=== PATIENT | female | born 1990 | race Two or more races ===

== ENCOUNTER 2024-03-19 18:03 | Emergency (ER) | payer MEDICAID, SELFPAY ==
[2024-03-19 18:10] VITALS: PULSE 90; RESP 18; O2SAT 98
[2024-03-19 18:24] VITALS: BP 149/100; PULSE 69; RESP 16; TEMP 36.4; O2SAT 100
[2024-03-19 18:47] VITALS: BMI 27.9
[2024-03-19 18:51] VITALS: BP 127/79; PULSE 75; RESP 16; TEMP 36.6; O2SAT 100
[2024-03-19 19:29] LABS: Basophils % (Auto) 0 % (0-2.5); Eosinophils # (Auto) 0.1 Thou/mm3 (0.0-0.5); Eosinophils % (Auto) 1 % (0-10); Hematocrit 36.8 % (36.0-46.0); Hemoglobin 12.8 g/dL (12.0-16.0); Immature Granulocytes % (Auto) 0 % (0-0); Immature Granulocytes Auto 0.01 Thou/mm3 (0.00-0.00); Lymphocytes # (Auto) 2.4 Thou/mm3 (1.0-4.8); Lymphocytes % (Auto) 31 % (10-50); Mean Corpuscular HGB Conc 34.8 g/dl (31.0-37.0); Mean Corpuscular Hemoglobin 32.3 pg (25.0-35.0); Mean Corpuscular Volume 93 fL (80-100); Monocytes # (Auto) 0.5 Thou/mm3 (0.0-0.8); Monocytes % (Auto) 7 % (0-12); Neutrophils # (Auto) 4.6 Thou/mm3 (1.8-7.7); Neutrophils % (Auto) 60 % (37-80); Nucleated Red Blood Cell % 0 /100 WBC (0); Platelet Count 252 Thou/mm3 (140-440); RDW Standard Deviation 45.2 fL (36.4-46.3); Red Blood Count 3.96 Miln/mm3 (4.00-5.20); White Blood Count 7.7 Thou/mm3 (3.6-11.0)
[2024-03-19 19:47] LABS: Alanine Aminotransferase 18 U/L (10-49); Albumin, Serum 4.6 gm/dL (3.5-5.0); Albumin/Globulin Ratio 1.5 (1.2-2.2); Alkaline Phosphatase 83 U/L (46-116); Anion Gap 7 (7-16); Aspartate Amino Transferase 19 U/L (0-34); BUN/Creatinine Ratio 16 Ratio (12-20); Bilirubin,Total 0.5 mg/dL (0.3-1.2); Blood Urea Nitrogen 13 mg/dL (9-23); Calcium 9.9 mg/dL (8.3-10.6); Calcium (Corrected) 9.9 mg/dL (8.5-10.1); Carbon Dioxide 23.8 mMol/L (20.0-31.0); Chloride 110 mMol/L (98-107); Creatinine (Component) 0.8 mg/dL (0.6-1.3); Estimated Creatinine Clearance 96.7 mL/min (>60); Globulin 3.1 gm/dL (2.3-3.5); Glucose 98 mg/dL (74-106); Osmolality,Calculated 281 (275-295); Potassium 3.8 mMol/L (3.4-5.1); Sodium 141 mMol/L (136-145); Total Protein 7.7 gm/dL (5.7-8.2); eGFR > 60 See Note
--- NOTE | 2024-03-19 19:53 | PD.EDSYNC ---
ED Syncope RME/HPI General Chief Complaint: Syncope / Near Syncope Stated Complaint: SYNCOPE Time Seen by Provider: 03/19/24 19:54 Arrival date/time: 03/19/24 18:03 Limitations: no limitations RME / HPI RME / HPI narrative: Dr. Márquez's Main ED Evaluation: 33-year-old female coming in from home for lightheadedness and she was walking and then she had syncopal episode. The patient states she knew she was going to pass out and then hit her right side on the fence. She was complaining of minimal left ankle abrasion and left arm pain. Patient states that she is on metoprolol but she has not had a change in her meds. Positive palpitations. Patient states she did not have headache, nausea vomiting or diarrhea. No recent travel and no shortness of breath. No chest pain. MD complaint: other Related Data Home Medications ?Medication ?Instructions ?Recorded ?Confirmed metoprolol tartrate 50 mg tablet 25 mg PO Q12H PRN Tachyarrhythmias 07/19/20 02/24/22 folic acid 1 mg tablet 1 mg PO QDAY 02/24/22 02/24/22 vit no.95-ferrous 1 tab PO QDAY 02/24/22 02/24/22 fumarate 28 mg-folic acid 800 mcg tablet () Previous Rx's ?Medication ?Instructions ?Recorded ibuprofen 600 mg tablet 600 mg PO TID PRN pain #30 tabs 04/09/22 ibuprofen 600 mg tablet 600 mg PO Q8H PRN pain #14 tabs 10/12/22 tamsulosin 0.4 mg capsule 0.4 mg PO QDAY #7 caps 10/12/22 Allergies Allergy/AdvReac Type Severity Reaction Status Date / Time No Known Allergies Allergy Verified 01/24/24 03:13 Review of Systems Review of Systems Systems Reviewed: All systems reviewed, normal except as documented Past Medical History Past Medical History NEUROLOGIC: Negative Neurological Disorders CARDIAC: Positive Cardiac Arrhythmia; Negative Cardiac Disorders or Congestive Heart Failure RESPIRATORY: Negative Chronic Obstructive Pulmonary Disease (COPD) or Asthma GASTROINTESTINAL: Positive Gastrointestinal Disorders, Pancreatitis and Ulcer GENITOURINARY: Negative Genitourinary Disorders or Renal Disease REPRODUCTIVE: Negative Pelvic Inflammatory Disease MUSCULOSKELETAL: Negative Musculoskeletal Disorders ENDOCRINE: Negative Diabetes Mellitus Type 1 or Diabetes Mellitus Type 2 HEMATOLOGIC: Negative Blood Disorders or Sickle Cell Disease OTHER HISTORY: Negative Autoimmune Disease, Anesthesia Reactions, Organ Transplant, MRSA, VRSA, Vancomycin-Resistant Enterococci or Clostridium Difficile Family History FAMILY HISTORY: Positive Family Cardiac Disorders; Negative Family Psychiatric Problems, Family Respiratory Disorders, Family Gastrointestinal Problems, Family Cancer, Family Surgery or Family Anesthesia Reaction Surgical History SURGICAL: Positive Abdominal Surgery and Lumpectomy; Negative Cardiac Surgery, Endocrine Surgery, Ear Surgery, Nephrectomy, Joint Replacement or Organ Transplant Social History SMOKING STATUS: Never smoker SECOND HAND EXPOSURE: No ED Exam General Limitations: Present no limitations General appearance: Present alert and in no apparent distress Head Head exam: Present atraumatic Eye Eye exam: Present normal appearance, PERRL and EOMI ENT ENT exam: Present normal exam, normal oropharynx and mucous membranes moist Neck Neck exam: Present normal inspection, full ROM and trachea midline Chest Chest inspection: Present normal inspection and symmetric chest wall rise Respiratory Respiratory exam: Present normal lung sounds bilaterally Cardiovascular Cardiovascular exam: Present regular rate, normal rhythm and normal heart sounds Abdominal Exam Abdominal exam: Present soft and normal bowel sounds Extremities Exam Extremities exam: Present normal inspection and full ROM Back Exam Back exam: Present normal inspection and full ROM Neurological Exam Neurological exam: Present alert, oriented X3 and CN II-XII intact Psychiatric Psychiatric exam: Present normal affect and normal mood Skin Skin exam: Present warm, dry, intact and normal color Course Quality Measures none Orders Category Date Time Status EKG (ED ONLY) *Do not use* NOW Care 03/19/24 18:50 Active EKG (ED Only) Stat Exams 03/19/24 18:49 Stop Req CBC Stat Lab 03/19/24 19:12 Completed CMP [Comprehensive Metabolic Panel] Stat Lab 03/19/24 19:12 Completed Drug Screen,Urine Stat Lab 03/19/24 18:51 Ordered HCG Qualitative,Urine Stat Lab 03/19/24 18:50 Ordered Urinalysis Stat Lab 03/19/24 18:50 Ordered Vital Signs Vital signs: Vital Signs Temperature 97.6 F 03/19/24 18:24 Pulse Rate 69 03/19/24 18:24 Respiratory Rate 16 03/19/24 18:24 Blood Pressure 149/100 H 03/19/24 18:24 Pulse Oximetry (%) 100 03/19/24 18:24 Oxygen Delivery Method Room Air 03/19/24 18:24 Pulse ox is 100% on room air, which is normal according to my interpretation. Syncope MDM Narrative MDM Narrative:: Differential diagnosis includes palpitations, CHF, arrhythmia, abdominal pain, electrolyte abnormality, GI bleed. Likely not acute pulmonary embolism as the etiology and the patient at this time does not wait wait for an EKG. We discussed risks and benefits to include , but the patient would like to leave Labs are reviewed the patient has white count of 7.7 which is normal. Hemoglobin is 12/36 which is normal no thrombocytopenia. Otherwise electrolytes are normal. Fingerstick is 99. Alternatives were discussed and the patient is leaving AMA. Patient data External records reviewed:: [facility] previous records (Per chart review, patient was seen here on 01/24/24 for abdominal pain.) Clinical information provided by:: patient Social determinants that could affect healthcare access:: none Patient has the following chronic illnesses:: ulcer How is presenting disease/condition affected by chronic disease/condition?: uneffected by Evaluation data The following diagnostics were reviewed and interpreted by me:: lab results Lab and/or radiology exams considered but not ordered:: none Interpretation Summary: See above under MDM narrative. Medications / Prescriptions Medications or Prescriptions considered but not ordered:: none Medication administrations:: none Consultations Consultation(s) initiated? (list below): No Diagnosis Syncope Differential Diagnosis: other (palpitations, CHF, arrhythmia, abdominal pain, electrolyte abnormality, GI bleed) Most likely diagnosis given after review of the tests above:: Patient signed out AMA prior to results. Admission Indicated Admission indicated?: not indicated Admission Request Was there a request for admission?: No Disposition Plan Disposition Plan: other (specify) (Patient signed out against medical advice.) Discharge Plan Plan Patient Disposition: Left Against Medical Advice Patient condition on transfer: Stable Prescriptions/Referrals Prescriptions/Med Rec: No Action metoprolol tartrate 50 mg Tablet 25 mg PO Q12H PRN (Reason: Tachyarrhythmias) Rx Instructions: half tab folic acid 1 mg tablet 1 mg PO QDAY Patient Comments: take 1 tablet by mouth once daily PNV b#95-ferrous fumarate-FA [] 28 mg iron- 800 mcg tablet 1 tab PO QDAY Patient Comments: take 1 tablet by mouth once daily ibuprofen 600 mg tablet 600 mg PO TID PRN (Reason: pain) Qty: 30 0RF tamsulosin 0.4 mg capsule 0.4 mg PO QDAY Qty: 7 0RF ibuprofen 600 mg tablet 600 mg PO Q8H PRN (Reason: pain) Qty: 14 0RF Problem List Clinical Impression: Syncope, Left against medical advice Patient/Caregiver Discharge Instructions Education Materials: Causes of Syncope Additional Instructions: Please follow-up with your primary care physician in the next 24 to 72 hours. Return for any worsening symptoms, or any other concerns Print Language: Montenegrin
== END 2024-03-19 20:05 | disposition left against medical advice (07) ==
PROVIDERS: Emergency Provider Emergency Medicine; PCP Family Medicine
DX: R55 Syncope and collapse (principal); Z53.29 Procedure and treatment not carried out because of patient's decision for other reasons
CPT/HCPCS: 36415; 80053; 80307; 81001; 81025; 85025; 93005; 99283

== ENCOUNTER 2024-07-16 08:02 | Emergency (ER) | payer MEDICAID, SELFPAY ==
[2024-07-16 08:19] VITALS: BP 121/78; PULSE 72; RESP 18; TEMP 36.8; O2SAT 100; BMI 28.6
--- NOTE | 2024-07-16 08:38 | EKG_ITS ---
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
--- NOTE | 2024-07-16 08:38 | PD.EDRME ---
Rapid Medical Screening Exam RME Arrival date/time: 07/16/24 08:02 This is a 34-year-old female that comes in with complaints of dizziness. Patient states she has had 2 other episodes prior to this where she feels dizzy and lightheaded. Patient reports having palpitations prior to this episode and gets very sweaty. Patient had a history of having issues with this in the past. Patient takes metoprolol for palpitations. Patient denies chest pain and shortness of breath. Patient denies any other symptoms. I have greeted and performed a focused initial assessment of this patient. Initial appropriate labs ordered at this time. A comprehensive ED assessment and evaluation of the patient and analysis of all test and completion of medical decision making process will be conducted by additional ED provider. Chief Complaint: Dizziness Time Seen by Provider: 07/16/24 08:22 Vital signs: Vital Signs Temperature 98.2 F 07/16/24 08:19 Pulse Rate 72 07/16/24 08:19 Respiratory Rate 18 07/16/24 08:19 Blood Pressure 121/78 07/16/24 08:19 Pulse Oximetry (%) 100 07/16/24 08:19 Oxygen Delivery Method Room Air 07/16/24 08:19
--- NOTE | 2024-07-16 08:43 | XR_ITS ---
Exam: Chest 1 view, AP Date and time of exam: 07/16/2024, 8:27 AM INDICATION: Dizziness Comparison: 11/19/2020 Findings: Normal heart size. No mediastinal adenopathy. No acute fracture No pulmonary edema or pneumonia. Impression: No active disease.
[2024-07-16 09:47] LABS: Collection Type, Urine Voided; Squamous Epithelial Cell,Urine 0 /hpf (0-5)
[2024-07-16 10:12] LABS: Basophils % (Auto) 0 % (0-2.5); Eosinophils # (Auto) 0.1 Thou/mm3 (0.0-0.5); Eosinophils % (Auto) 1 % (0-10); Hematocrit 36.3 % (36.0-46.0); Hemoglobin 12.6 g/dL (12.0-16.0); Immature Granulocytes % (Auto) 0 % (0-0); Immature Granulocytes Auto 0.01 Thou/mm3 (0.00-0.00); Lymphocytes % (Auto) 26 % (10-50); Mean Corpuscular HGB Conc 34.7 g/dl (31.0-37.0); Mean Corpuscular Hemoglobin 32.4 pg (25.0-35.0); Mean Corpuscular Volume 93 fL (80-100); Monocytes # (Auto) 0.5 Thou/mm3 (0.0-0.8); Monocytes % (Auto) 7 % (0-12); Neutrophils % (Auto) 66 % (37-80); Nucleated Red Blood Cell % 0 /100 WBC (0); Platelet Count 238 Thou/mm3 (140-440); RDW Standard Deviation 45.4 fL (36.4-46.3); Red Blood Count 3.89 Miln/mm3 (4.00-5.20); White Blood Count 7.6 Thou/mm3 (3.6-11.0)
[2024-07-16 10:13] LABS: Bilirubin,Urine Negative (Negative); Blood,Urine Trace (Negative); Clarity,Urine Clear (Clear/Hazy); Color,Urine Colorless (Lt Yel-Yel); Culture Indicated,Urine Not Indicated; Glucose, Urine Negative (Negative); Ketones,Urine Negative (Negative); Leukocyte Esterase,Urine Negative (Negative); Nitrite,Urine Negative (Negative); Protein,Urine Negative (Neg - Trace); RBC,Urine < 1 /hpf (0-3); Specific Gravity,Urine 1.007 (1.001-1.035); Urobilinogen,Urine Negative mg/dL (0.0-1.0); WBC,Urine 1 /hpf (0-5)
[2024-07-16 10:24] LABS: HCG Qualitative,Urine Negative
[2024-07-16 10:28] LABS: Amphetamine/Methamp Scrn,U Negative (Negative); Barbiturate Screen,Urine Negative (Negative); Benzodiazepines Screen,Urine Negative (Negative); Benzoylecgonine Screen, Ur Negative (Negative); Fentanyl Screen,Urine Negative (Negative); Opiate Screen,Urine Negative (Negative); THC Screen,Urine Negative (Negative)
[2024-07-16 10:34] LABS: Alanine Aminotransferase 21 U/L (10-49); Albumin, Serum 4.4 gm/dL (3.5-5.0); Albumin/Globulin Ratio 1.5 (1.2-2.2); Alkaline Phosphatase 94 U/L (46-116); Anion Gap 7 (7-16); Aspartate Amino Transferase 12 U/L (0-34); BUN/Creatinine Ratio 14 Ratio (12-20); Bilirubin,Total 0.4 mg/dL (0.3-1.2); Blood Urea Nitrogen 11 mg/dL (9-23); Calcium 9.3 mg/dL (8.3-10.6); Calcium (Corrected) 9.3 mg/dL (8.5-10.1); Chloride 108 mMol/L (98-107); Creatinine (Component) 0.8 mg/dL (0.6-1.3); Estimated Creatinine Clearance 96.9 mL/min (>60); Glucose 89 mg/dL (74-106); Osmolality,Calculated 281 (275-295); Sodium 142 mMol/L (136-145); Total Protein 7.4 gm/dL (5.7-8.2); Troponin I < 0.020 ng/mL (0.0-0.045); eGFR > 60 See Note
--- NOTE | 2024-07-16 12:49 | PD.EDDIZZY ---
ED Dizzyness RME/HPI General Chief Complaint: Dizziness Stated Complaint: DIZZY Time Seen by Provider: 07/16/24 08:22 Arrival date/time: 07/16/24 08:02 Limitations: no limitations RME / HPI RME / HPI Narrative: 07/16/24 08:02 This is a 34-year-old female that comes in with complaints of dizziness. Patient states she has had 2 other episodes prior to this where she feels dizzy and lightheaded. Patient reports having palpitations prior to this episode and gets very sweaty. Patient had a history of having issues with this in the past. Patient takes metoprolol for palpitations. Patient denies chest pain and shortness of breath. Patient denies any other symptoms. I have greeted and performed a focused initial assessment of this patient. Initial appropriate labs ordered at this time. A comprehensive ED assessment and evaluation of the patient and analysis of all test and completion of medical decision making process will be conducted by additional ED provider. DR. FLOYD MAIN ED EVALUATION: 34 year old female presents to the Emergency Department with complaint of a light-headed dizziness episode lasting 1 minute. Patient states she works at the [employer] and was taking vitals when she felt wobbly and dizzy. Her blood glucose was 79 and they gave her orange juice. No other symptoms reported and no trauma. Patient had similar symptoms in the past, last week similar symptoms and her blood glucose was 49. She states that this morning she had coffee and a sugar cookie. She states she does not drink a lot of fluids; maybe total 48 oz total in a day, including teas. PMHx: Pancreatitis in past and takes metoprolol for palpitations. Denies any hypertension or diabetes history. Family history is significant for hypertension and diabetes; father had a stroke. Social Hx: No tobacco, alcohol, or substance use. Related Data Home Medications ?Medication ?Instructions ?Recorded ?Confirmed metoprolol tartrate 50 mg tablet 25 mg PO Q12H PRN Tachyarrhythmias 07/19/20 02/24/22 folic acid 1 mg tablet 1 mg PO QDAY 02/24/22 02/24/22 vit no.95-ferrous 1 tab PO QDAY 02/24/22 02/24/22 fumarate 28 mg-folic acid 800 mcg tablet () Previous Rx's ?Medication ?Instructions ?Recorded ibuprofen 600 mg tablet 600 mg PO TID PRN pain #30 tabs 04/09/22 ibuprofen 600 mg tablet 600 mg PO Q8H PRN pain #14 tabs 10/12/22 tamsulosin 0.4 mg capsule 0.4 mg PO QDAY #7 caps 10/12/22 Allergies Allergy/AdvReac Type Severity Reaction Status Date / Time No Known Allergies Allergy Verified 07/16/24 08:04 Review of Systems Review of Systems Systems Reviewed: All systems reviewed, normal except as documented Narrative Review of Systems: GEN: No fever, no chills, no weight loss EYES: No discharge, no visual changes, no pain HEENT: No ear pain, no congestion, no sore throat PULM: No shortness of breath, no cough, no congestion CV: No chest pain, no dyspnea on exertion, no palpitations GI: No nausea, no vomiting, no diarrhea, no pain, no constipation : No frequency, no urgency and no dysuria MUSC/SKEL: No joint pain, no back pain SKIN: No rash PSYCH: No hallucinations, no depression HEME/LYMPH: No easy bleeding or bruising tendencies NEURO: No weakness, no headache, + light-headed dizziness episode (see HPI) Past Medical History Past Medical History CARDIAC: Positive Cardiac Arrhythmia GASTROINTESTINAL: Positive Gastrointestinal Disorders, Pancreatitis and Ulcer Family History FAMILY HISTORY: Positive Family Cardiac Disorders Surgical History SURGICAL: Positive Abdominal Surgery and Lumpectomy Social History SMOKING STATUS: Never smoker SECOND HAND EXPOSURE: No SUBSTANCE USE: does not use ALCOHOL: Never ED Exam General Limitations: Present no limitations General appearance: Present alert and in no apparent distress Head Head exam: Present atraumatic, normocephalic and normal inspection Eye Eye exam: Present normal appearance, PERRL and EOMI; Absent nystagmus ENT ENT exam: Present normal exam, normal oropharynx and mucous membranes moist Neck Neck exam: Present normal inspection, full ROM and trachea midline Chest Chest inspection: Present normal inspection and symmetric chest wall rise Respiratory Respiratory exam: Present normal lung sounds bilaterally Cardiovascular Cardiovascular exam: Present regular rate, normal rhythm and normal heart sounds Abdominal Exam Abdominal exam: Present soft and normal bowel sounds Extremities Exam Extremities exam: Present normal inspection and full ROM Back Exam Back exam: Present normal inspection and full ROM Neurological Exam Neurological exam: Present alert, oriented X3 and CN II-XII intact Psychiatric Psychiatric exam: Present normal affect and normal mood Skin Skin exam: Present warm, dry, intact and normal color Course Quality Measures none Orders Category Date Time Status Bedside Blood Glucose STAT Care 07/16/24 13:03 Active Assistant Manager Of Operations STAT Care 07/16/24 13:03 Active Assistant Manager Of Operations STAT Care 07/16/24 13:04 Active Continuous Pulse Oximetry ONCE Care 07/16/24 13:04 Active EKG (ED ONLY) *Do not use* NOW Care 07/16/24 08:38 Completed Insert IV STAT Care 07/16/24 13:[address] head/brain wo con Stat Exams 07/16/24 13:09 Completed EKG (ED Only) Stat Exams 07/16/24 08:38 Draft XR chest 1V Stat Exams 07/16/24 08:43 Completed CBC Stat Lab 07/16/24 10:04 Completed CBC Stat Lab 07/16/24 13:49 Completed Comprehensive Metabolic Panel Stat Lab 07/16/24 10:04 Completed Drug Screen,Urine Stat Lab 07/16/24 08:55 Completed HCG Qualitative,Urine Stat Lab 07/16/24 08:55 Completed Magnesium Stat Lab 07/16/24 13:49 Completed Troponin I Stat Lab 07/16/24 10:04 Completed Troponin I Stat Lab 07/16/24 13:49 Completed Urinalysis, C/S if Indicated Stat Lab 07/16/24 08:55 Completed Sodium Chloride 0.9% 250 ml [Ns] 250 ml Med 07/16/24 13:01 Discontinued IV 999 mls/hr Vital Signs Vital signs: Vital Signs Temperature 98.2 F 07/16/24 08:19 Pulse Rate 72 07/16/24 08:19 Respiratory Rate 18 07/16/24 08:19 Blood Pressure 121/78 07/16/24 08:19 Pulse Oximetry (%) 100 07/16/24 08:19 Oxygen Delivery Method Room Air 07/16/24 08:19 Procedures -ED EKG Interpretation #1: Date of EK07/16/24 Time of EK:46 Rate: 83 Interpretation: Interpreted by me Additional EKG comment: sinus rhythm, rate 83, no acute changes Dizziness MDM Narrative MDM Narrative:: I, Lucretia Naranjo, brooke scribing for and in the presence of Dr. Floyd. Patient data External records reviewed:: [facility] previous records (Reviewed last ED visit dated 03/19/24, patient here for similar lightheadedness symptoms but left AMA. ) Clinical information provided by:: patient Social determinants that could affect healthcare access:: none Patient has the following chronic illnesses:: Pancreatitis in past and takes metoprolol for palpitations. Denies any hypertension or diabetes history. Family history is significant for hypertension and diabetes; father had a stroke. How is presenting disease/condition affected by chronic disease/condition?: exacerbated by Evaluation data The following diagnostics were reviewed and interpreted by me:: lab results, radiology exam(s) and EKG tracing(s) Lab and/or radiology exams considered but not ordered:: none Interpretation Summary: Procedure(s): XR chest 1V Accession Number(s): [id number] cc: Emile Diehl MD; NO PRIMARY/FAMILY,PHYSICIAN; Pamela Villalba NP~ Exam: Chest 1 view, AP Date and time of exam: 07/16/2024, 8:27 AM INDICATION: Dizziness Comparison: 11/19/2020 Findings: Normal heart size. No mediastinal adenopathy. No acute fracture No pulmonary edema or pneumonia. Impression: No active disease. Dictated By: Emile Diehl MD Procedure(s): CT head/brain wo con Accession Number(s): [id number] cc: Harshal Floyd MD; Emile Diehl MD; NO PRIMARY/FAMILY,PHYSICIAN~ Examination: CT brain head without contrast. 2-D sagittal coronal reconstructions Date and time of exam:07/16/2024, 1:50 PM INDICATION: Dizziness. COMPARISON: November 02, 2008 CTDI: vol (mGy):48.2 DLP: (mGycm):984 Technique: Multiple CT axial sections of the brain have been obtained, 5 mm slice thickness. Contrast has not been administered. 2-D sagittal, coronal reconstructions have been obtained Low dose protocols were performed. One or more of the following dose reduction techniques were used; automated exposure control, adjustment of the mA and/or KV according to patient size, use of iterative reconstruction technique. Findings: No significant ventricular enlargement. Intra-axial or extra-axial hemorrhage density is not seen. No mass effect or midline shift Basal cisterns are not remarkable. Fourth ventricle is midline. Cranial vault intact. Impression: Negative for acute hemorrhage, mass effect or midline shift Dictated By: Emile Diehl MD Medications / Prescriptions Medications or Prescriptions considered but not ordered:: none Medication administrations:: Medication Administration History Discontinued Medications Sodium Chloride (Ns) 250 mls @ 999 mls/hr IV .Q16M ONE Stop: 07/16/24 13:16 Last Infusion: 07/16/24 15:01 Dose: Infused Documented By: Admin: 07/16/24 14:04 Dose: 999 mls/hr Documented By: IRVING see above Consultations Consultation(s) initiated? (list below): No Diagnosis Dizziness Differential Diagnosis: transient cerebral ischemia and other (dehydration, hypoglycemia) Most likely diagnosis given after review of the tests above:: Dehydration Dizziness History of hypoglycemia Admission Indicated Admission indicated?: not indicated Admission Request Was there a request for admission?: No Disposition Plan Disposition Plan: Discharge Discharge Attestation Discharge Attestation: The patient and all family members were given an opportunity to ask questions and understood the discharge instructions. Discharge instructions specifically effects, indications for sooner follow up or return to the emergency department, and the expected course of current diagnosis. Patient condition: Stable Discharge Plan Plan Patient Disposition: HOME (Self Care) Patient condition on transfer: Stable Prescriptions/Referrals Prescriptions/Med Rec: No Action metoprolol tartrate 50 mg Tablet 25 mg PO Q12H PRN (Reason: Tachyarrhythmias) Rx Instructions: half tab folic acid 1 mg tablet 1 mg PO QDAY Patient Comments: take 1 tablet by mouth once daily PNV cmb#95-ferrous fumarate-FA [] 28 mg iron- 800 mcg tablet 1 tab PO QDAY Patient Comments: take 1 tablet by mouth once daily ibuprofen 600 mg tablet 600 mg PO TID PRN (Reason: pain) Qty: 30 0RF tamsulosin 0.4 mg capsule 0.4 mg PO QDAY Qty: 7 0RF ibuprofen 600 mg tablet 600 mg PO Q8H PRN (Reason: pain) Qty: 14 0RF Referrals: No Primary/Family,Physician [Primary Care Provider] - In 1 week Problem List Clinical Impression: Dehydration, Dizziness, Hx of hypoglycemia Patient/Caregiver Discharge Instructions Diet Instructions: Drink more fluids and have a better, healthier breakfast. Education Materials: ED Dehydration (Adult), ED Dizziness, Uncertain Cause Additional Instructions: Please follow-up with your primary care physician within a week. Return to the Emergency Department as needed. Print Language: Polish Stand Alone Forms: [employer] Info., Patient Portal Info Letter
[2024-07-16 13:00] VITALS: BP 127/86; PULSE 74; RESP 14; O2SAT 100
--- NOTE | 2024-07-16 13:09 | XR_ITS ---
Examination: CT brain head without contrast. 2-D sagittal coronal reconstructions Date and time of exam:07/16/2024, 1:50 PM INDICATION: Dizziness. COMPARISON: November 02, 2008 CTDI: vol (mGy):48.2 DLP: (mGycm):984 Technique: Multiple CT axial sections of the brain have been obtained, 5 mm slice thickness. Contrast has not been administered. 2-D sagittal, coronal reconstructions have been obtained Low dose protocols were performed. One or more of the following dose reduction techniques were used; automated exposure control, adjustment of the mA and/or KV according to patient size, use of iterative reconstruction technique. Findings: No significant ventricular enlargement. Intra-axial or extra-axial hemorrhage density is not seen. No mass effect or midline shift Basal cisterns are not remarkable. Fourth ventricle is midline. Cranial vault intact. Impression: Negative for acute hemorrhage, mass effect or midline shift
[2024-07-16 13:55] LABS: Basophils % (Auto) 0 % (0-2.5); Eosinophils # (Auto) 0.1 Thou/mm3 (0.0-0.5); Eosinophils % (Auto) 1 % (0-10); Hematocrit 36.4 % (36.0-46.0); Hemoglobin 12.7 g/dL (12.0-16.0); Immature Granulocytes % (Auto) 0 % (0-0); Immature Granulocytes Auto 0.01 Thou/mm3 (0.00-0.00); Lymphocytes # (Auto) 2.6 Thou/mm3 (1.0-4.8); Lymphocytes % (Auto) 35 % (10-50); Mean Corpuscular HGB Conc 34.9 g/dl (31.0-37.0); Mean Corpuscular Hemoglobin 32.4 pg (25.0-35.0); Mean Corpuscular Volume 93 fL (80-100); Monocytes # (Auto) 0.4 Thou/mm3 (0.0-0.8); Monocytes % (Auto) 6 % (0-12); Neutrophils # (Auto) 4.3 Thou/mm3 (1.8-7.7); Neutrophils % (Auto) 58 % (37-80); Nucleated Red Blood Cell % 0 /100 WBC (0); Platelet Count 253 Thou/mm3 (140-440); RDW Standard Deviation 45.6 fL (36.4-46.3); Red Blood Count 3.92 Miln/mm3 (4.00-5.20); White Blood Count 7.5 Thou/mm3 (3.6-11.0)
[2024-07-16] MEDS: SODIUM CHLORIDE 0.9% 250 ML 250 ML 999 ML IV (14:04)
[2024-07-16 14:17] LABS: Magnesium 2.1 mg/dL (1.6-2.6); Troponin I < 0.020 ng/mL (0.0-0.045)
[2024-07-16 15:08] VITALS: BP 117/74; PULSE 64; RESP 14; TEMP 36.8; O2SAT 98
== END 2024-07-16 16:33 | disposition home or self-care (01) ==
PROVIDERS: Nurse Practitioner Family; Emergency Provider Family Medicine
DX: E86.0 Dehydration (principal); R42 Dizziness and giddiness
CPT/HCPCS: 36415; 70450; 71045; 80053; 80307; 81001; 81025; 83735; 84484; 85025; 93005; 96360; 99284; J7050

== ENCOUNTER 2024-10-08 03:37 | Emergency (ER) | payer MEDICAID, SELFPAY ==
[2024-10-08 03:40] VITALS: BMI 27.4
[2024-10-08 03:41] VITALS: BP 108/75; PULSE 78; RESP 19; TEMP 36.6; O2SAT 100
[2024-10-08 03:45] VITALS: PULSE 75; RESP 20; O2SAT 98
--- NOTE | 2024-10-08 04:17 | PD.EDABDPN ---
ED Abdominal Pain RME/HPI General Chief Complaint: Abdominal Pain Stated complaint: ABD PAIN Time seen by provider: 10/08/24 04:17 Arrival date/time: 10/08/24 03:37 RME / HPI RME / HPI narrative: This section includes all my notes and documentations, including HPI, PE, and ED course. Isreal Ram MD HPI: 34 y/o female with SHx of cholecystectomy and Hx of Pancreatitis, IBS, and Ulcer BIBA from home presents to ED c/o epigastric abdominal pain and nausea for about 24 hours. Prescribed Dicyclomine, Omeperazole, and Creon but not compliant. Denies vomiting. No rectal bleeding or tarry stools. No other complaints. ROS: All negative except as documented in HPI. Physical Exam: General: Alert and oriented. In obvious pain. Eyes: Conjunctivae and lids clear. ENT: No nasal congestion. Neck: Supple. Heart: RRR. Lungs: No respiratory distress. Good air movement. No rhonchi, wheezing, rales. Abdomen: Soft with severe upper abdominal tenderness. Normal bowel sounds. No distension. No rebound or guarding. Back: No CVA tenderness. Skin: Warm and dry. Neuro: Alert and oriented X 3. I reviewed EMS notes. I ordered IV fluid, Zofran, Dilaudid, Toradol, and diagnostic tests. At 6 AM on 10/08/2024, the care of the patient was transferred to Dr. Martin. Isreal Ram MD Related Data Home Medications ?Medication ?Instructions ?Recorded ?Confirmed metoprolol tartrate 50 mg tablet 25 mg PO Q12H PRN Tachyarrhythmias 07/19/20 02/24/22 folic acid 1 mg tablet 1 mg PO QDAY 02/24/22 02/24/22 vit no.95-ferrous 1 tab PO QDAY 02/24/22 02/24/22 fumarate 28 mg-folic acid 800 mcg tablet () Previous Rx's ?Medication ?Instructions ?Recorded ibuprofen 600 mg tablet 600 mg PO TID PRN pain #30 tabs 04/09/22 ibuprofen 600 mg tablet 600 mg PO Q8H PRN pain #14 tabs 10/12/22 tamsulosin 0.4 mg capsule 0.4 mg PO QDAY #7 caps 10/12/22 Allergies Allergy/AdvReac Type Severity Reaction Status Date / Time No Known Allergies Allergy Verified 07/16/24 08:04 Review of Systems Review of Systems Systems Reviewed: All systems reviewed, normal except as documented Past Medical History Past Medical History CARDIAC: Positive Cardiac Arrhythmia GASTROINTESTINAL: Positive Gastrointestinal Disorders, Pancreatitis, Ulcer and Irritable Bowel Family History FAMILY HISTORY: Positive Family Cardiac Disorders Surgical History SURGICAL: Positive Abdominal Surgery ED Exam Narrative Physical exam: Refer to HPI Course Quality Measures none Orders Category Date Time Status CT Screening NOW Care 10/08/24 04:47 Active Saline [Insert IV] NOW Care 10/08/24 04:46 Active Straight [In and Out Catheter] X1 Care 10/08/24 04:[address] abdomen pelvis w con Stat Exams 10/08/24 04:47 Ordered Bilirubin,Direct Stat Lab 10/08/24 04:47 Ordered CBC Stat Lab 10/08/24 04:47 Ordered CMP [Comprehensive Metabolic Panel] Stat Lab 10/08/24 04:47 Ordered HCG Qualitative,Urine Stat Lab 10/08/24 04:47 Ordered HCG,Qualitative Serum Stat Lab 10/08/24 04:47 Ordered Lipase Stat Lab 10/08/24 04:47 Ordered Magnesium Stat Lab 10/08/24 04:47 Ordered UA, C/S IF [Urinalysis, C/S if Indicated] Stat Lab 10/08/24 04:47 Ordered HYDROmorphone INJ [Dilaudid Inj] Med 10/08/24 04:46 Once 1 mg IVP X1 ONE Ketorolac Inj [Toradol Inj] Med 10/08/24 04:46 Once 30 mg IVP X1 ONE Ondansetron Inj [Zofran Inj] Med 10/08/24 04:46 Once 4 mg IVP X1 ONE Sodium Chloride 0.9% 1000 ml [Ns] 1,000 ml Med 10/08/24 04:46 Ordered IV 999 mls/hr Vital Signs Vital signs: Vital Signs Temperature 97.8 F 10/08/24 03:41 Pulse Rate 78 10/08/24 03:41 Respiratory Rate 19 10/08/24 03:41 Blood Pressure 108/75 10/08/24 03:41 Pulse Oximetry (%) 100 10/08/24 03:41 Oxygen Delivery Method Room Air 10/08/24 03:41 Abdominal Pain MDM MDM Narrative MDM Narrative:: Scribe Attestation: I, Genesis Lara, am scribing for and in the presence of Dr. Ram. Provider Notation: Although this document has been carefully reviewed, there may still be some phonetic and other typographical errors.? These errors are purely grammatical due to imperfections in the software program and should not be construed in any way to? compromise the substance of the patient's medical care during this visit. 34 y/o female with SHx of cholecystectomy and Hx of Pancreatitis, IBS, and Ulcer BIBA from home presents to ED c/o epigastric abdominal pain and nausea for about 24 hours. Prescribed Dicyclomine, Omeperazole, and Creon but not compliant. Denies vomiting. No rectal bleeding or tarry stools. No other complaints. Patient data External records reviewed:: [facility] previous records (Reviewed prior ED records from 07/16/24. Patient was seen for Dehydration.) and EMS form Clinical information provided by:: patient and EMS Social determinants that could affect healthcare access:: none Patient has the following chronic illnesses:: Cardiac Arrhythmia, Pancreatitis, Ulcer and Irritable Bowel How is presenting disease/condition affected by chronic disease/condition?: exacerbated by Evaluation data The following diagnostics were reviewed and interpreted by me:: other (specify) (Diagnostic test results are pending.) Lab and/or radiology exams considered but not ordered:: None Interpretation Summary: Diagnostic test results are pending. Medications / Prescriptions Medications or Prescriptions considered but not ordered:: None Medication administrations:: Medication Administration History Hydromorphone HCl (Hydromorphone Inj 2 Mg/Ml Vial) 1 mg IVP X1 ONE Stop: 10/08/24 04:47 Sodium Chloride (Ns) 1,000 mls @ 999 mls/hr IV .Q1H1M ONE Stop: 10/08/24 05:46 Ketorolac Tromethamine (Ketorolac Inj 30 Mg/Ml Vial) 30 mg IVP X1 ONE Stop: 10/08/24 04:47 Ondansetron HCl (Ondansetron Inj 2 Mg/Ml Inj 2 Ml) 4 mg IVP X1 ONE; Protocol Stop: 10/08/24 04:47 I ordered IV fluid, Zofran, Dilaudid, and Toradol. Consultations Consultation(s) initiated? (list below): No Diagnosis Differential diagnosis abdominal pain: abdominal pain, acute appendicitis, calculus of kidney, constipation, diverticulitis, endometriosis, gastroenteritis, pancreatitis, small bowel obstruction and other (GERD, PUD, gastritis, biliary colic) Most likely diagnosis given after review of the tests above:: Diagnostic test results are pending. Admission Indicated Admission indicated?: not indicated Explain why admission is indicated or not indicated:: Diagnostic test results are pending. Admission Request Was there a request for admission?: No Disposition Plan Disposition Plan: other (specify) (Sign-out to Dr. Martin at 6 AM.) Discharge Plan Prescriptions/Referrals Prescriptions/Med Rec: No Action metoprolol tartrate 50 mg Tablet 25 mg PO Q12H PRN (Reason: Tachyarrhythmias) Rx Instructions: half tab folic acid 1 mg tablet 1 mg PO QDAY Patient Comments: take 1 tablet by mouth once daily PNV b#95-ferrous fumarate-FA [] 28 mg iron- 800 mcg tablet 1 tab PO QDAY Patient Comments: take 1 tablet by mouth once daily ibuprofen 600 mg tablet 600 mg PO TID PRN (Reason: pain) Qty: 30 0RF tamsulosin 0.4 mg capsule 0.4 mg PO QDAY Qty: 7 0RF ibuprofen 600 mg tablet 600 mg PO Q8H PRN (Reason: pain) Qty: 14 0RF Problem List Clinical Impression: Abdominal pain Patient/Caregiver Discharge Instructions Print Language: Nepali
--- NOTE | 2024-10-08 04:47 | XR_ITS ---
Examination: CT abdomen with intravenous contrast CT pelvis with intravenous contrast 2-D coronal reconstructions 2-D sagittal reconstructions Date and time of exam:October 08, 2024 0823 hrs. Indications: Epigastric pain today. CTDI: vol (mGy) 9 DLP: (mGycm) 463 Technique: Multiple axial sections of the abdomen and pelvis have been obtained. 64 slice high-resolution scanner used. 3 mm axial sections have been obtained, post intravenous injection 60 cc [id number] 2-D sagittal, coronal reconstructions obtained. Low dose protocols were performed. One or more of the following dose reduction techniques were used; automated exposure control, adjustment of the mA and/or KV according to patient size, use of iterative reconstruction technique. Findings: Diffuse mucosal thickening involving the stomach Hepatomegaly 17 cm with diffuse fatty infiltration throughout the liver Spleen is not enlarged Absent gallbladder Common bile duct 10 mm no definite stones No pancreatitis No renal or ureteral calculi, no hydronephrosis Aorta normal size No bowel obstruction No pericecal inflammatory change There is mild free fluid in the pelvis Mild thickening of urinary bladder wall Impression: Gastritis pattern Recommend hepatobiliary sonography to assess the enlarged common bile duct Negative for pancreatitis No renal calculi or hydronephrosis No CT findings of appendicitis or bowel obstruction Free fluid in the pelvis, recommend pelvic sonography follow-up
[2024-10-08] MEDS: SODIUM CHLORIDE 0.9% 1000 ML 1,000 ML 999 ML IV (05:08)
[2024-10-08] MEDS: ONDANSETRON INJ 2 MG/ML INJ 2 ML 4 MG IVP (05:09)
[2024-10-08 05:10] VITALS: TEMP 37
[2024-10-08] MEDS: HYDROmorphone INJ 2 MG/ML VIAL 1 MG IVP (05:10)
[2024-10-08] MEDS: KETOROLAC INJ 30 MG/ML VIAL IVP (05:10)
[2024-10-08 05:11] VITALS: BP 102/62; PULSE 89; RESP 12; TEMP 37; O2SAT 99
[2024-10-08 05:36] LABS: Basophils % (Auto) 0 % (0-2.5); Eosinophils # (Auto) 0.1 Thou/mm3 (0.0-0.5); Eosinophils % (Auto) 1 % (0-10); Hematocrit 31.6 % (36.0-46.0); Hemoglobin 11.3 g/dL (12.0-16.0); Immature Granulocytes % (Auto) 0 % (0-0); Immature Granulocytes Auto 0.03 Thou/mm3 (0.00-0.00); Lymphocytes # (Auto) 1.6 Thou/mm3 (1.0-4.8); Lymphocytes % (Auto) 15 % (10-50); Mean Corpuscular HGB Conc 35.8 g/dl (31.0-37.0); Mean Corpuscular Hemoglobin 32.6 pg (25.0-35.0); Mean Corpuscular Volume 91 fL (80-100); Monocytes # (Auto) 0.6 Thou/mm3 (0.0-0.8); Monocytes % (Auto) 6 % (0-12); Neutrophils # (Auto) 8.6 Thou/mm3 (1.8-7.7); Neutrophils % (Auto) 78 % (37-80); Nucleated Red Blood Cell % 0 /100 WBC (0); Platelet Count 185 Thou/mm3 (140-440); RDW Standard Deviation 46.1 fL (36.4-46.3); Red Blood Count 3.47 Miln/mm3 (4.00-5.20); White Blood Count 10.9 Thou/mm3 (3.6-11.0)
--- NOTE | 2024-10-08 06:23 | EDNOTE_ITS ---
Emergency Room Addendum Addendum Narrative: 0600: Care assumed from Dr. Ram, the previous shift emergency physician. Past medical, surgical, social and family history reviewed. Vitals and home medications reviewed. I will assume the care of the patient at this time, pending abdomen/pelvis CT, remainder of labs, and final disposition. Please refer to the emergency department record for history and examination from initial visit.? Physical exam by me shows patient under no acute distress at this time. 1300: Patient remains clinically stable throughout the emergency department visit. Re-assessment at the time of disposition demonstrates that the patient is in no acute distress. We reviewed all the results, analysis, and treatment plans. Patient is amenable to discharge. Strict return precautions were outlined. Patient was discharged in stable condition. Diagnosis: -Abdominal pain Results Objective Laboratory: Laboratory Last Values WBC 10.9 Thou/mm3 (3.6-11.0) 10/08/24 05:12 RBC 3.47 Miln/mm3 (4.00-5.20) L 10/08/24 05:12 Hgb 11.3 g/dL (12.0-16.0) L 10/08/24 05:12 Hct 31.6 % (36.0-46.0) L 10/08/24 05:12 MCV 91 fL (80-100) 10/08/24 05:12 MCH 32.6 pg (25.0-35.0) 10/08/24 05:12 MCHC 35.8 g/dl (31.0-37.0) 10/08/24 05:12 RDW Std Deviation 46.1 fL (36.4-46.3) 10/08/24 05:12 Plt Count 185 Thou/mm3 (140-440) 10/08/24 05:12 Neut % (Auto) 78 % (37-80) 10/08/24 05:12 Lymph % (Auto) 15 % (10-50) 10/08/24 05:12 [place] % (Auto) 6 % (0-12) 10/08/24 05:12 Eos % (Auto) 1 % (0-10) 10/08/24 05:12 Baso % (Auto) 0 % (0-2.5) 10/08/24 05:12 Neut # (Auto) 8.6 Thou/mm3 (1.8-7.7) H 10/08/24 05:12 Lymph # (Auto) 1.6 Thou/mm3 (1.0-4.8) 10/08/24 05:12 [place] # (Auto) 0.6 Thou/mm3 (0.0-0.8) 10/08/24 05:12 Eos # (Auto) 0.1 Thou/mm3 (0.0-0.5) 10/08/24 05:12 Baso # (Auto) 0.0 Thou/mm3 (0.0-0.2) 10/08/24 05:12 Immature Gran # (Auto) 0.03 Thou/mm3 (0.00-0.00) H 10/08/24 05:12 Absolute Nucleated RBC 0.00 Thou/mm3 (0.00-0.00) 10/08/24 05:12 Immature Gran % 0 % (0-0) 10/08/24 05:12 Nucleated RBC % 0 /100 WBC (0) 10/08/24 05:12 Sodium 138 mMol/L (136-145) 10/08/24 05:12 Potassium 3.7 mMol/L (3.4-5.1) 10/08/24 05:12 Chloride 107 mMol/L (98-107) 10/08/24 05:12 Carbon Dioxide 22.8 mMol/L (20.0-31.0) 10/08/24 05:12 Anion Gap 8 (7-16) 10/08/24 05:12 BUN 10 mg/dL (9-23) 10/08/24 05:12 Creatinine 0.9 mg/dL (0.6-1.3) 10/08/24 05:12 Estim Creat Clear Calc 84.4 mL/min (>60) 10/08/24 05:12 eGFR > 60 See Note (60-) 10/08/24 05:12 BUN/Creatinine Ratio 11 Ratio (12-20) L 10/08/24 05:12 Glucose 89 mg/dL (74-106) 10/08/24 05:12 Calculated Osmolality 273 (275-295) L 10/08/24 05:12 Calcium 9.2 mg/dL (8.3-10.6) 10/08/24 05:12 Corrected Calcium 9.2 mg/dL (8.5-10.1) 10/08/24 05:12 Magnesium 2.0 mg/dL (1.6-2.6) 10/08/24 05:12 Total Bilirubin 0.8 mg/dL (0.3-1.2) 10/08/24 05:12 Direct Bilirubin 0.3 mg/dL (0.0-0.3) 10/08/24 05:12 ALT 16 U/L (10-49) 10/08/24 05:12 Alkaline Phosphatase 66 U/L (46-116) 10/08/24 05:12 Total Protein 6.4 gm/dL (5.7-8.2) 10/08/24 05:12 Albumin 4.0 gm/dL (3.5-5.0) 10/08/24 05:12 Globulin 2.4 gm/dL (2.3-3.5) 10/08/24 05:12 Albumin/Globulin Ratio 1.7 (1.2-2.2) 10/08/24 05:12 Lipase 41 U/L (12-53) 10/08/24 05:12 HCG, Qual Negative 10/08/24 05:12 Ur Collection Type Clean Catch 10/08/24 07:07 Urine Color Yellow (Lt Yel-Yel) 10/08/24 07:07 Urine Clarity Clear (Clear/Hazy) 10/08/24 07:07 Urine pH 6.5 (5.0-7.0) 10/08/24 07:07 Ur Specific [place] 1.021 (1.001-1.035) 10/08/24 07:07 Urine Protein Negative (Neg - Trace) 10/08/24 07:07 Urine Glucose (UA) Negative (Negative) 10/08/24 07:07 Urine Ketones Trace (Negative) 10/08/24 07:07 Urine Blood Negative (Negative) 10/08/24 07:07 Urine Nitrite Negative (Negative) 10/08/24 07:07 Urine Bilirubin Negative (Negative) 10/08/24 07:07 Urine Urobilinogen (Auto) Negative mg/dL (0.0-1.0) 10/08/24 07:07 Ur Leukocyte Esterase Negative (Negative) 10/08/24 07:07 Urine RBC 1 /hpf (0-3) 10/08/24 07:07 Urine WBC 7 /hpf (0-5) H 10/08/24 07:07 Ur Squamous Epith Cells < 1 /hpf (0-5) 10/08/24 07:07 Urine Bacteria None (None) 10/08/24 07:07 Ur Culture Indicated? Not Indicated 10/08/24 07:07 Urine HCG, Qual Negative 10/08/24 07:07 Imaging: Procedure(s): CT abdomen pelvis w con Accession Number(s): [id number] cc: Isreal Ram MD; Tierra Ram ; Sidney Fabian MD~ Examination: CT abdomen with intravenous contrast CT pelvis with intravenous contrast 2-D coronal reconstructions 2-D sagittal reconstructions Date and time of exam:October 08, 2024 0823 hrs. Indications: Epigastric pain today. CTDI: vol (mGy) 9 DLP: (mGycm) 463 Technique: Multiple axial sections of the abdomen and pelvis have been obtained. 64 slice high-resolution scanner used. 3 mm axial sections have been obtained, post intravenous injection 60 cc [id number] 2-D sagittal, coronal reconstructions obtained. Low dose protocols were performed. One or more of the following dose reduction techniques were used; automated exposure control, adjustment of the mA and/or KV according to patient size, use of iterative reconstruction technique. Findings: Diffuse mucosal thickening involving the stomach Hepatomegaly 17 cm with diffuse fatty infiltration throughout the liver Spleen is not enlarged Absent gallbladder Common bile duct 10 mm no definite stones No pancreatitis No renal or ureteral calculi, no hydronephrosis Aorta normal size No bowel obstruction No pericecal inflammatory change There is mild free fluid in the pelvis Mild thickening of urinary bladder wall Impression: Gastritis pattern Recommend hepatobiliary sonography to assess the enlarged common bile duct Negative for pancreatitis No renal calculi or hydronephrosis No CT findings of appendicitis or bowel obstruction Free fluid in the pelvis, recommend pelvic sonography follow-up Dictated By: Sidney Fabian MD Procedure(s): US liver Accession Number(s): [id number] cc: Harshal Martin MD; Tierra Ram ; Sidney Fabian MD~ Examination: Abdomen sonogram, Limited Date and time of exam: October 08, 2024 1112 hrs. Indications: Epigastric pain beginning last night Technique: Real-time rivera scale transabdominal sonographic images of the upper abdomen obtained. Findings: Absent gallbladder. Normal common bile duct 0.6 cm Pancreatic head 2.3 cm Mild hepatomegaly fatty infiltration Normal hepatopedal portal venous flow Patent IVC Impression: Normal common bile duct Dictated By: Sidney Fabian MD
[2024-10-08 06:33] LABS: Alanine Aminotransferase 16 U/L (10-49); Albumin/Globulin Ratio 1.7 (1.2-2.2); Alkaline Phosphatase 66 U/L (46-116); Anion Gap 8 (7-16); BUN/Creatinine Ratio 11 Ratio (12-20); Bilirubin,Direct 0.3 mg/dL (0.0-0.3); Bilirubin,Total 0.8 mg/dL (0.3-1.2); Blood Urea Nitrogen 10 mg/dL (9-23); Calcium 9.2 mg/dL (8.3-10.6); Calcium (Corrected) 9.2 mg/dL (8.5-10.1); Carbon Dioxide 22.8 mMol/L (20.0-31.0); Chloride 107 mMol/L (98-107); Creatinine (Component) 0.9 mg/dL (0.6-1.3); Estimated Creatinine Clearance 84.4 mL/min (>60); Globulin 2.4 gm/dL (2.3-3.5); Glucose 89 mg/dL (74-106); Osmolality,Calculated 273 (275-295); Potassium 3.7 mMol/L (3.4-5.1); Sodium 138 mMol/L (136-145); Total Protein 6.4 gm/dL (5.7-8.2); eGFR > 60 See Note
[2024-10-08 06:43] LABS: Lipase 41 U/L (12-53)
[2024-10-08 07:14] LABS: Collection Type, Urine Clean Catch
[2024-10-08 07:20] LABS: HCG,Qualitative Serum Negative
[2024-10-08 07:29] LABS: Bilirubin,Urine Negative (Negative); Blood,Urine Negative (Negative); Clarity,Urine Clear (Clear/Hazy); Color,Urine Yellow (Lt Yel-Yel); Culture Indicated,Urine Not Indicated; Glucose, Urine Negative (Negative); Ketones,Urine Trace (Negative); Leukocyte Esterase,Urine Negative (Negative); Nitrite,Urine Negative (Negative); PH,Urine 6.5 (5.0-7.0); Protein,Urine Negative (Neg - Trace); RBC,Urine 1 /hpf (0-3); Specific Gravity,Urine 1.021 (1.001-1.035); Squamous Epithelial Cell,Urine < 1 /hpf (0-5); Urobilinogen,Urine Negative mg/dL (0.0-1.0); WBC,Urine 7 /hpf (0-5)
[2024-10-08 07:30] LABS: HCG Qualitative,Urine Negative
[2024-10-08 10:54] VITALS: BP 108/59; PULSE 62; RESP 16; TEMP 36.8; O2SAT 100
--- NOTE | 2024-10-08 10:57 | XR_ITS ---
Examination: Abdomen sonogram, Limited Date and time of exam: October 08, 2024 1112 hrs. Indications: Epigastric pain beginning last night Technique: Real-time rivera scale transabdominal sonographic images of the upper abdomen obtained. Findings: Absent gallbladder. Normal common bile duct 0.6 cm Pancreatic head 2.3 cm Mild hepatomegaly fatty infiltration Normal hepatopedal portal venous flow Patent IVC Impression: Normal common bile duct
== END 2024-10-08 13:39 | disposition home or self-care (01) ==
PROVIDERS: Emergency Provider Emergency Medicine; PCP Nurse Practitioner Family
DX: R10.13 Epigastric pain (principal)
CPT/HCPCS: 36415; 74177; 76705; 80053; 81001; 81025; 82248; 83690; 83735; 84703; 85025; 96361; 96374; 96375; 99285; A4649; J1171; J1885; J2405; J7030; Q9967

== ENCOUNTER 2025-04-15 17:01 | Emergency (ER) | payer MEDICAID, SELFPAY ==
[2025-04-15 17:02] VITALS: BP 123/84; PULSE 64; RESP 22; TEMP 36.6; O2SAT 99
--- NOTE | 2025-04-15 17:06 | PD.EDABDPN ---
ED Abdominal Pain RME/HPI General Chief Complaint: Abdominal Pain Stated complaint: ABD PAIN Time seen by provider: 04/15/25 17:04 Arrival date/time: 04/15/25 17:01 RME / HPI RME / HPI narrative: 34 yo female patient with a h/o intermittent abdominal pain for which she takes dicyclomine complaining of severe epigastric abdominal pain radiating to her back along with lightheadedness secondary to pain. She states she took dicyclomine but the pain has not subsided. Mild nausea, no vomiting. She was on the commode when she was feeling lightheaded. Denies diarrhea or constipation. No blood or black color to stool. Denies urinary symptoms. Remote history of pancreatitis; she states that this pain is not similar. History of cholelithiasis and cholecystectomy; she states the current pain is similar to when she had cholecystitis. History of EGD and colonoscopy at [facility] many years prior. She had been referred by her doctor to a [facility]keman in [place] but was unable to get in for an appointment. Related Data Home Medications ?Medication ?Instructions ?Recorded ?Confirmed metoprolol tartrate 50 mg tablet 25 mg PO Q12H PRN Tachyarrhythmias 07/19/20 02/24/22 folic acid 1 mg tablet 1 mg PO QDAY 02/24/22 02/24/22 vit no.95-ferrous 1 tab PO QDAY 02/24/22 02/24/22 fumarate 28 mg-folic acid 800 mcg tablet () Previous Rx's ?Medication ?Instructions ?Recorded ibuprofen 600 mg tablet 600 mg PO TID PRN pain #30 tabs 04/09/22 ibuprofen 600 mg tablet 600 mg PO Q8H PRN pain #14 tabs 10/12/22 tamsulosin 0.4 mg capsule 0.4 mg PO QDAY #7 caps 10/12/22 acetaminophen 300 mg-codeine 30 mg 2 tab PO Q8H PRN pain #20 tabs 04/15/25 tablet ondansetron 4 mg disintegrating 4 mg PO TID PRN nausea and 04/15/25 tablet vomiting 30 days #10 tabs Allergies Allergy/AdvReac Type Severity Reaction Status Date / Time No Known Allergies Allergy Verified 04/17/25 10:58 Review of Systems Review of Systems Systems Reviewed: All systems reviewed, normal except as documented ED Exam Narrative Physical exam: GENERAL APPEARANCE: alert and oriented x 4, well-developed, well-nourished, clutching abdomen, lying in position secondary to pain HEENT: Normocephalic, atraumatic; pupils equal, round, reactive to light; EOMI; mucous membranes pink, moist; oropharynx clear NECK: Supple LUNGS: CTABL; no wheezes, no rales, no rhonchi HEART: Regular rate, regular rhythm; normal S1, S2; no murmurs ABDOMEN: non distended; normal BS; soft, no tenderness, no guarding, no rebound; no masses, no organomegaly, no hernia BACK: no CVA tenderness EXTREMITIES: atraumatic; no edema NEUROLOGIC: awake; alert and oriented x4; cranial nerves II-XII grossly intact; no focal sensory or motor deficits PSYCHIATRIC: appropriate mood and affect SKIN: warm, dry, normal color; no rashes Course Quality Measures none Orders Category Date Time Status CT Screening NOW Care 04/15/25 17:28 Completed Legal Administrator NOW Care 04/15/25 17:16 Completed EKG (ED ONLY) *Do not use* NOW Care 04/15/25 17:16 Completed Saline [Insert IV] NOW Care 04/15/25 18:05 Completed Straight [In and Out Catheter] X1 Care 04/15/25 18:[address] abdomen pelvis wo con Stat Exams 04/15/25 18:06 Completed EKG (ED Only) Stat Exams 04/15/25 17:16 Stop Req US abdomen limited Stat Exams 04/15/25 18:06 Completed Amylase Stat Lab 04/15/25 17:31 Completed B-Type Natriuretic Peptide Stat Lab 04/15/25 17:31 Completed Bilirubin,Direct Stat Lab 04/15/25 17:31 Completed CBC Stat Lab 04/15/25 17:31 Completed Comprehensive Metabolic Panel Stat Lab 04/15/25 17:31 Completed HCG,Qualitative Serum Stat Lab 04/15/25 17:31 Completed Lipase Stat Lab 04/15/25 17:31 Completed Magnesium Stat Lab 04/15/25 17:31 Completed Troponin I Stat Lab 04/15/25 17:31 Completed UA, C/S IF [Urinalysis, C/S if Indicated] Stat Lab 04/15/25 17:22 Completed HYDROmorphone INJ [Dilaudid Inj] Med 04/15/25 21:30 Discontinued 1 mg IVP X1 ONE Ketorolac Inj [Toradol Inj] Med 04/15/25 18:05 Discontinued 30 mg IVP X1 ONE Morphine* Inj Med 04/15/25 17:28 Discontinued 4 mg IVP X1 ONE Ondansetron Inj [Zofran Inj] Med 04/15/25 17:28 Discontinued 4 mg IVP X1 ONE Sodium Chloride 0.9% 1000 ml [Ns] 1,000 ml Med 04/15/25 18:05 Discontinued IV 999 mls/hr Vital Signs Vital signs: Vital Signs Temperature 97.8 F 04/15/25 17:02 Pulse Rate 64 04/15/25 17:02 Respiratory Rate 22 H 04/15/25 17:02 Blood Pressure 123/84 04/15/25 17:02 Pulse Oximetry (%) 99 04/15/25 17:02 Oxygen Delivery Method Room Air 04/15/25 17:02 Abdominal Pain MDM Patient data External records reviewed:: [facility] previous records Clinical information provided by:: patient Social determinants that could affect healthcare access:: none Patient has the following chronic illnesses:: none How is presenting disease/condition affected by chronic disease/condition?: no chronic disease Evaluation data The following diagnostics were reviewed and interpreted by me:: lab results and radiology exam(s) Lab and/or radiology exams considered but not ordered:: NONE Interpretation Summary: as above Medications / Prescriptions Medications or Prescriptions considered but not ordered:: none Medication administrations:: Medication Administration History Discontinued Medications Hydromorphone HCl (Hydromorphone Inj 2 Mg/Ml Vial) 1 mg IVP X1 ONE Stop: 04/15/25 21:31 Last Admin: 04/15/25 21:56 Dose: 1 mg Documented By: SAMIA Sodium Chloride (Ns) 1,000 mls @ 999 mls/hr IV .Q1H1M ONE Stop: 04/15/25 19:05 Last Infusion: 04/15/25 19:49 Dose: Infused Documented By: Admin: 04/15/25 18:19 Dose: 999 mls/hr Documented By: LEILA Ketorolac Tromethamine (Ketorolac Inj 30 Mg/Ml Vial) 30 mg IVP X1 ONE Stop: 04/15/25 18:06 Last Admin: 04/15/25 18:18 Dose: 30 mg Documented By: LEILA Morphine Sulfate (Morphine Sulf Inj 4 Mg/Ml Vial) 4 mg IVP X1 ONE Stop: 04/15/25 17:29 Last Admin: 04/15/25 18:18 Dose: 4 mg Documented By: CS Ondansetron HCl (Ondansetron Inj 2 Mg/Ml Inj 2 Ml) 4 mg IVP X1 ONE Stop: 04/15/25 17:29 Last Admin: 04/15/25 18:18 Dose: 4 mg Documented By: CS as above Consultations Consultation(s) initiated? (list below): No Diagnosis Differential diagnosis abdominal pain: acute appendicitis, calculus of kidney, constipation, diverticulitis, endometriosis, gastroenteritis, pancreatitis and small bowel obstruction Most likely diagnosis given after review of the tests above:: Biliary Colic Admission Indicated Admission indicated?: not indicated Admission Request Was there a request for admission?: No Disposition Plan Disposition Plan: Discharge Discharge Plan Prescriptions/Referrals Prescriptions/Med Rec: New acetaminophen-codeine 300-30 mg tablet 2 tab PO Q8H MDD 6 PRN (Reason: pain) Qty: 20 0RF ondansetron 4 mg tablet,disintegrating 4 mg PO TID PRN (Reason: nausea and vomiting) 30 Days Qty: 10 0RF No Action metoprolol tartrate 50 mg Tablet 25 mg PO Q12H PRN (Reason: Tachyarrhythmias) Rx Instructions: half tab folic acid 1 mg tablet 1 mg PO QDAY Patient Comments: take 1 tablet by mouth once daily PNV no.95-ferrous fumarate-FA [] 28 mg iron- 800 mcg tablet 1 tab PO QDAY Patient Comments: take 1 tablet by mouth once daily ibuprofen 600 mg tablet 600 mg PO TID PRN (Reason: pain) Qty: 30 0RF tamsulosin 0.4 mg capsule 0.4 mg PO QDAY Qty: 7 0RF ibuprofen 600 mg tablet 600 mg PO Q8H PRN (Reason: pain) Qty: 14 0RF Referrals: No Primary/Family,Physician [Primary Care Provider] - In 1 week Problem List Clinical Impression: Biliary colic Patient/Caregiver Discharge Instructions Discharge Activity: activity as tolerated Print Language: Turkmen Attestation Attestation I took over the care from previous shift physician (Dr. Read) at _6PM_ on _04/15/25_. See previous notes for complete H & P and ED course. I reviewed all diagnostic test results. My review of the abdominal CT report is NAD. My review of the abdominal US report is 10 mm enlarged CBD. Blood tests and urine tests unremarkable except AST 98 and ALT 51. Diagnoses include: Enlarged CBD with possible stones Treatment here included: IVF Zofran 4 mg IV Toradol 30 mL of IV Morphine 4 mg IV Dilaudid 1 g IV She felt much better. Recommended MRCP. Not available here until the day after tomorrow (04/17/2025). Recommended transfer for MRCP. Discussed potential risks, including worsening and sudden . Patient understood the risks and is willing to take the risks. Patient will return here on 04/17/2025 for further care. Based on my best medical judgment, made decision no further evaluation or treatment indicated at this time. Patient understands and agrees to the discharge instructions customized and printed, see below. Discharge Instructions from Dr. Ram printed for you: 1. After evaluation, your severe pain may be due to stones in the common bile duct. Common bile duct connects gallbladder and liver and intestine. 2. To be certain, you need MRCP. It's not available here until the day after tomorrow, 04/17/2025. 3. Return for another ER visit here on 04/17/25 morning for MRCP. 4. Until then, try clear liquid diet. And solid foods slowly if tolerated. Avoid all fried and fatty foods. 5. Seek immediate medical care with worsening or with any concerns. Isreal Ram MD
[2025-04-15 17:08] VITALS: PULSE 78; RESP 17; O2SAT 98
[2025-04-15 17:23] VITALS: BMI 29.2
[2025-04-15 17:44] LABS: Collection Type, Urine Clean Catch
--- NOTE | 2025-04-15 18:06 | XR_ITS ---
Examination: Abdomen sonogram, Limited Date and time of exam: April 15, 2025, 1920 hours INDICATIONS: Onset abdominal pain today, history cholecystectomy Technique: Real-time rivera scale transabdominal sonographic images of the upper abdomen obtained. Findings: Absent gallbladder Common bile duct enlarged 10 mm Pancreatic head 2.8 cm Liver 15.7 cm no liver lesions Normal hepatopetal portal venous flow Patent IVC IMPRESSION: Abnormally enlarged common bile duct, 10 mm, consider MRCP follow-up to exclude common bile duct stones
--- NOTE | 2025-04-15 18:06 | XR_ITS ---
Examination: CT abdomen and pelvis without contrast. Coronal 3-D reconstructions. Sagittal 2-D reconstructions. Date and time of exam: April 15, 2025, 1940 hours INDICATIONS: Onset upper abdominal pain today COMPARISON: October 08, 2024 CTDI: vol (mGy): 8.98 DLP: (mGycm): 470 Technique: Axial images of the abdomen have been obtained, 3 mm slice thickness Intravenous contrast material has not been administered. Low dose protocols were performed. One or more of the following dose reduction techniques were used; automated exposure control, adjustment of the mA and/or KV according to patient size, use of iterative reconstruction technique. Findings: No focal liver or splenic lesions Absent gallbladder No pancreatic mass 1 mm lower pole left renal calculus, coronal image 84, minimal dilatation of the left renal calyces No bowel obstruction No pericecal inflammatory change No diverticulitis Anteverted uterus Distended urinary bladder Osseous structures are intact IMPRESSION: 1 mm lower pole nonobstructing left renal calculus Suspicious for left urinary tract infection
[2025-04-15 18:14] LABS: Basophils # (Auto) 0.0 Thou/mm3 (0.0-0.2); Basophils % (Auto) 0 % (0-2.5); Eosinophils # (Auto) 0.1 Thou/mm3 (0.0-0.5); Eosinophils % (Auto) 1 % (0-10); Hematocrit 35.9 % (36.0-46.0); Hemoglobin 12.5 g/dL (12.0-16.0); Immature Granulocytes Auto 0.02 Thou/mm3 (0.00-0.00); Lymphocytes # (Auto) 2.1 Thou/mm3 (1.0-4.8); Lymphocytes % (Auto) 19 % (10-50); Mean Corpuscular HGB Conc 34.8 g/dl (31.0-37.0); Mean Corpuscular Hemoglobin 33.2 pg (25.0-35.0); Mean Corpuscular Volume 95 fL (80-100); Monocytes # (Auto) 0.6 Thou/mm3 (0.0-0.8); Monocytes % (Auto) 5 % (0-12); Neutrophils # (Auto) 7.9 Thou/mm3 (1.8-7.7); Neutrophils % (Auto) 74 % (37-80); Nucleated Red Blood Cell # 0.00 Thou/mm3 (0.00-0.00); Nucleated Red Blood Cell % 0 /100 WBC (0); Platelet Count 237 Thou/mm3 (140-440); RDW Standard Deviation 47.1 fL (36.4-46.3); Red Blood Count 3.77 Miln/mm3 (4.00-5.20); White Blood Count 10.6 Thou/mm3 (3.6-11.0)
[2025-04-15] MEDS: MORPHINE SULF INJ 4 MG/ML VIAL IVP (18:18)
[2025-04-15] MEDS: KETOROLAC INJ 30 MG/ML VIAL IVP (18:18)
[2025-04-15] MEDS: ONDANSETRON INJ 2 MG/ML INJ 2 ML 4 MG IVP (18:18)
[2025-04-15] MEDS: SODIUM CHLORIDE 0.9% 1000 ML 1,000 ML 999 ML IV (18:19)
[2025-04-15 18:20] LABS: Amorphous Crystals,Urine Present (Absent); Bilirubin,Urine Negative (Negative); Blood,Urine Negative (Negative); Budding Yeast,Urine Present; Clarity,Urine Turbid (Clear/Hazy); Color,Urine Yellow (Lt Yel-Yel); Culture Indicated,Urine Contaminated; Glucose, Urine Negative (Negative); Ketones,Urine Negative (Negative); Leukocyte Esterase,Urine Positive (Negative); Nitrite,Urine Negative (Negative); PH,Urine 8.0 (5.0-7.0); Protein,Urine Negative (Neg - Trace); RBC,Urine 3 /hpf (0-3); Specific Gravity,Urine 1.022 (1.001-1.035); Squamous Epithelial Cell,Urine 29 /hpf (0-5); Urobilinogen,Urine 3.0 mg/dL (0.0-1.0); WBC,Urine 17 /hpf (0-5)
[2025-04-15 18:40] LABS: B-Type Natriuretic Peptide 28 pg/mL (0-100)
[2025-04-15 18:41] VITALS: BP 100/65; PULSE 74; RESP 16; TEMP 36.6; O2SAT 95
[2025-04-15 18:42] LABS: Alanine Aminotransferase 51 U/L (10-49); Albumin, Serum 4.7 gm/dL (3.5-5.0); Albumin/Globulin Ratio 1.5 (1.2-2.2); Alkaline Phosphatase 84 U/L (46-116); Anion Gap 7 (7-16); Aspartate Amino Transferase 98 U/L (0-34); BUN/Creatinine Ratio 18 Ratio (12-20); Bilirubin,Total 0.5 mg/dL (0.3-1.2); Blood Urea Nitrogen 14 mg/dL (9-23); Calcium 9.8 mg/dL (8.3-10.6); Calcium (Corrected) 9.8 mg/dL (8.5-10.1); Carbon Dioxide 24.8 mMol/L (20.0-31.0); Chloride 107 mMol/L (98-107); Creatinine (Component) 0.8 mg/dL (0.6-1.3); Estimated Creatinine Clearance 97.7 mL/min (>60); Globulin 3.1 gm/dL (2.3-3.5); Glucose 71 mg/dL (74-106); Lipase 30 U/L (12-53); Magnesium 2.2 mg/dL (1.6-2.6); Osmolality,Calculated 276 (275-295); Potassium 3.8 mMol/L (3.4-5.1); Sodium 139 mMol/L (136-145); Total Protein 7.8 gm/dL (5.7-8.2); Troponin I < 0.020 ng/mL (0.0-0.045); eGFR > 60 See Note
[2025-04-15 19:04] LABS: HCG,Qualitative Serum Negative
[2025-04-15 19:09] LABS: Amylase 106 U/L (30-118); Bilirubin,Direct 0.2 mg/dL (0.0-0.3)
--- NOTE | 2025-04-15 19:17 | PD.EDADDENDU ---
Emergency Room Addendum Addendum Narrative: I took over the care from previous shift physician (Dr. Read) at _6PM_ on _04/15/25_. See previous notes for complete H & P and ED course. I reviewed all diagnostic test results. My review of the abdominal CT report is NAD. My review of the abdominal US report is 10 mm enlarged CBD. Blood tests and urine tests unremarkable except AST 98 and ALT 51. Diagnoses include: Enlarged CBD with possible stones Treatment here included: IVF Zofran 4 mg IV Toradol 30 mL of IV Morphine 4 mg IV Dilaudid 1 g IV She felt much better. Recommended MRCP. Not available here until the day after tomorrow (04/17/2025). Recommended transfer for MRCP. Discussed potential risks, including worsening and sudden . Patient understood the risks and is willing to take the risks. Patient will return here on 04/17/2025 for further care. Based on my best medical judgment, made decision no further evaluation or treatment indicated at this time. Patient understands and agrees to the discharge instructions customized and printed, see below. Discharge Instructions from Dr. Ram printed for you: 1. After evaluation, your severe pain may be due to stones in the common bile duct. Common bile duct connects gallbladder and liver and intestine. 2. To be certain, you need MRCP. It's not available here until the day after tomorrow, 04/17/2025. 3. Return for another ER visit here on 04/17/25 morning for MRCP. 4. Until then, try clear liquid diet. And solid foods slowly if tolerated. Avoid all fried and fatty foods. 5. Seek immediate medical care with worsening or with any concerns. Isreal Ram MD
[2025-04-15 20:33] VITALS: BP 102/70; PULSE 68; RESP 18; TEMP 36.5; O2SAT 98
[2025-04-15] MEDS: HYDROmorphone INJ 2 MG/ML VIAL 1 MG IVP (21:56)
[2025-04-15 22:01] VITALS: BP 102/70; PULSE 77; RESP 18; O2SAT 97
--- NOTE | 2025-04-19 14:33 | PD.EDADDENDU ---
Emergency Room Addendum Addendum Narrative: I took over the care from previous shift physician, Dr. Read, at _6PM_ on _04/15/25_. See previous notes for complete H & P and ED course. I reviewed all diagnostic test results. My review of the abdominal CT report is NAD. My review of the abdominal US report is enlarged 11 mm CBD. Blood/urine tests remarkable for AST 98 and ALT 51. Diagnoses include: Biliary colic Treatment here FROM ME included: IVF Toradol 30 mg IV Morphine 4 mg IV I discussed the case with our ERCP GI (Dr. Matos). About the presentation and exam and diagnostics and treatments here. Recommended MRCP. Today is Thursday night. MRCP here not available until the day after (Thursday). Patient decided to return here on Thursday. Based on my best medical judgment, made decision no further evaluation or treatment indicated at this time. Patient understands and agrees to the discharge instructions customized and printed, see below. Discharge Instructions from Dr. Ram printed for you: 1. After evaluation, your severe pain may be due to stones in the common bile duct. Common bile duct connects gallbladder and liver and intestine. 2. To be certain, you need MRCP. It's not available here until the day after tomorrow, 04/17/2025. 3. Return for another ER visit here on 04/17/25 morning for MRCP. 4. Until then, try clear liquid diet. And solid foods slowly if tolerated. Avoid all fried and fatty foods. 5. Seek immediate medical care with worsening or with any concerns. Isreal Ram MD
== END 2025-04-15 22:22 | disposition home or self-care (01) ==
PROVIDERS: Emergency Medicine; Emergency Provider Emergency Medicine
DX: K80.50 Calculus of bile duct without cholangitis or cholecystitis without obstruction (principal); R10.10 Upper abdominal pain, unspecified
CPT/HCPCS: 36415; 74176; 76705; 80053; 81001; 82150; 82248; 83690; 83735; 83880; 84484; 84703; 85025; 93005; 96361; 96374; 96375; 99283; J1171; J1885; J2270; J2405; J7030

== ENCOUNTER 2025-04-17 10:56 | Emergency (ER) | payer MEDICAID, SELFPAY ==
--- NOTE | 2025-04-17 | XR_ITS ---
MRI abdomen, without contrast. MRCP Date and time of exam: April 17, 2025, 1514 hours, comparison July 19, 2020 INDICATIONS: Right upper abdominal pain beginning 3 days ago, abdomen sonogram enlarged common bile duct April 15, 2025 Technique: Multiple axial and coronal images of the abdomen have been obtained with the Siemens 1.5T MRI scanner. Images obtained included T1 weighted transverse images, T2-weighted transverse images, T2-weighted transverse images fat-suppressed, T2 weighted haste fat suppressed transverse images, T1 weighted images, in and out of phase images, T2-weighted coronal images, breath hold, T2 weighted haze coronal images as well as T2 weighted coronal thick slab images, MRCP. Findings: Mild hepatomegaly 17 cm Common hepatic duct isn't enlarged 10 mm and coronal image 12 demonstrates 4 mm stone in the distal common bile duct No pancreatic edema No hydronephrosis Spleen is not enlarged No ascites IMPRESSION: 4 mm stone in the distal common bile duct, recommend ERCP follow-up
[2025-04-17 11:04] VITALS: BP 109/72; PULSE 72; RESP 16; TEMP 36.8; O2SAT 100; BMI 24.8
--- NOTE | 2025-04-17 11:15 | EDNOTE_ITS ---
ED General RME/HPI General Chief complaint: General Adult/Misc Complain Stated complaint: RETURNED FOR MRCP Time Seen by Provider: 04/17/25 10:59 Arrival date/time: 04/17/25 10:56 CC: Right upper quadrant abdominal pain HPI ongoing for months, worse on Thursday 3 days ago was told to return here after workup revealed the patient needs an MRCP. Patient denies any nausea vomiting in the last 48 hours. Patient is awake alert oriented with stable vital signs. Currently patient denies any nausea or vomiting. Related Data Home Medications ?Medication ?Instructions ?Recorded ?Confirmed metoprolol tartrate 50 mg tablet 25 mg PO Q12H PRN Tac hyarrhythmias 07/19/20 02/24/22 folic acid 1 mg tablet 1 mg PO QDAY 02/24/22 vit no.95-ferrous 1 tab PO QDAY 02/24/2202/02 fumarate 28 mg-folic acid 800 mcg tablet () Previous Rx's ?Medication ?Instructions ?Recorded ibuprofen 600 mg tablet 600 mg PO TID PRN pain #30 t abs 04/09/22 ibuprofen 600 mg tablet 600 mg PO Q8H PRN pain #14 t abs 10/12/22 tamsulosin 0.4 mg capsule 0.4 mg PO QDAY #7 caps 10/12 acetaminophen 300 mg-codeine 30 mg 2 tab PO Q8H PRN pa in #20 tabs 04/15/25 tablet ondansetron 4 mg disintegrating 4 mg PO TID PRN nausea and 04/15/25 tablet vomiting 30 days #10 tabs Allergies Allergy/AdvReac Type Severity Reaction Status Date / Time No Known Allergies Allergy Verified 04/17/25 10:58 Review of Systems Review of Systems Narrative Review of Systems: GEN: No fever, no chills, no weight loss EYES: No discharge, no visual changes, no pain HEENT: No ear pain, no congestion, no sore throat PULM: No shortness of breath, no cough, no congestion CV: No chest pain, no dyspnea on exertion, no palpitations GI: No nausea, no vomiting, no diarrhea, + pain, no constipation : No frequency, no urgency, no dysuria MUSC/SKEL: No joint pain, no back pain SKIN: No rash PSYCH: No hallucinations, no depression HEME/LYMPH: No easy bleeding or bruising tendencies NEURO: No weakness, no headache ED Exam Narrative Physical exam: [General: Not in any acute distress Head normocephalic HEENT: Within acceptable limits Neck is supple nontender Chest equal chest rise nontender to palpation Respiratory: Clear to auscultation no wheezes crackles or rubs CV: Rate rhythm is regular no murmurs rubs or clicks Abdomen is soft, mild right upper quadrant epigastric pain with palpation. Back: No CVA tenderness no spinous process tenderness from cervical spine thoracic and lumbar spine Skin: Intact no petechiae rash induration ulceration or crepitus Extremities: Moving all extremity against resistance cap refill less than 2 seconds neurosensory intact Neuro: Awake alert oriented x3 Glascow coma 15 no focal deficits] Course Course Course Narrative: MRCP shows a 4 mm stone in the common bile duct. Patient needs to be transferred for ERCP. Patient made aware is requesting nausea medicine. Patient's case clinical presentation laboratory and imaging findings were discussed with Dr. Zuly RODRÍGUEZ who agrees to accept the patient for choledocholithiasis. Quality Measures none Orders Category Date Time Status MRI Screening NOW Care 04/17/25 11:15 Active Saline [Insert IV] NOW Care 04/17/25 19:51 Active MR MRCP Stat Exams 04/17/25 Completed CBC Stat Lab 04/17/25 11:36 Completed CMP [Comprehensive Metabolic Panel] Stat Lab 04/17/25 11:36 Completed Lipase Stat Lab 04/17/25 11:36 Completed Acetaminophen Tab [Tylenol Tab] Med 04/17/25 20:00 Discontinued 650 mg PO X1 ONE Ondansetron Odt [Zofran Odt] Med 04/17/25 16:55 Discontinued 4 mg PO X1 ONE Sodium Chloride 0.9% 1000 ml [Ns] 1,000 ml Med 04/17/25 19:51 Active IV 125 mls/hr oxyCODONE/APAP 5/325 [Percocet 5/325] Med 04/17/25 17:16 Discontinued 1 tab PO X1 ONE Vital Signs Vital signs: Vital Signs Temperature 98.2 F 04/17/25 11:04 Pulse Rate 72 04/17/25 11:04 Respiratory Rate 16 04/17/25 11:04 Blood Pressure 109/72 04/17/25 11:04 Pulse Oximetry (%) 100 04/17/25 11:04 Oxygen Delivery Method Room Air 04/17/25 11:04 Discharge Plan Plan Patient Disposition: [facility] Facility Pt Being Transferred to: [facility] Service Needed for Transfer: Gastroenterology Patient condition on transfer: Stable Prescriptions/Referrals Prescriptions/Med Rec: No Action metoprolol tartrate 50 mg Tablet 25 mg PO Q12H PRN (Reason: Tachyarrhythmias) Rx Instructions: half tab folic acid 1 mg tablet 1 mg PO QDAY Patient Comments: take 1 tablet by mouth once daily PNV no.95-ferrous fumarate-FA [] 28 mg iron- 800 mcg tablet 1 tab PO QDAY Patient Comments: take 1 tablet by mouth once daily ibuprofen 600 mg tablet 600 mg PO TID PRN (Reason: pain) Qty: 30 0RF tamsulosin 0.4 mg capsule 0.4 mg PO QDAY Qty: 7 0RF ibuprofen 600 mg tablet 600 mg PO Q8H PRN (Reason: pain) Qty: 14 0RF acetaminophen-codeine 300-30 mg tablet 2 tab PO Q8H MDD 6 PRN (Reason: pain) Qty: 20 0RF ondansetron 4 mg tablet,disintegrating 4 mg PO TID PRN (Reason: nausea and vomiting) 30 Days Qty: 10 0RF Referrals: No Primary/Family,Physician [Primary Care Provider] - In 1 week Problem List Clinical Impression: Choledocholithiasis, Right upper quadrant abdominal pain Patient/Caregiver Discharge Instructions Print Language: Peruvian Stand Alone Forms: [employer] Award Info., Patient Portal Info Letter 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 No thrombocytopenia CMP shows no significant electrolyte imbalances renal impairment T. bili at 0.5 AST at 56 ALT 52 alk phos is normal at 72. Lipase at 33. Imaging Imaging interpretation: interpreted by me Medication Administration(s) Medication Administration History Sodium Chloride (Ns) 1,000 mls @ 125 mls/hr IV .Q8H ZENIA Stop: 05/17/25 19:50 Last Admin: 04/17/25 20:25 Dose: 125 mls/hr Documented By: OLVIN Discontinued Medications Acetaminophen (Acetaminophen 325 Mg Tablet) 650 mg PO X1 ONE Stop: 04/17/25 20:01 Last Admin: 04/17/25 20:24 Dose: 650 mg Documented By: OLVIN Ondansetron HCl (Ondansetron Odt 4 Mg Tabrap) 4 mg PO X1 ONE; Protocol Stop: 04/17/25 16:56 Last Admin: 04/17/25 17:13 Dose: 4 mg Documented By: FELICITAS Oxycodone/Acetaminophen (Oxycodone/Apap 5/325 Tablet) 1 tab PO X1 ONE Stop: 04/17/25 17:17 Last Admin: 04/17/25 17:28 Dose: 1 tab Documented By: FELICITAS
[2025-04-17 11:55] LABS: Basophils # (Auto) 0.0 Thou/mm3 (0.0-0.2); Basophils % (Auto) 0 % (0-2.5); Eosinophils # (Auto) 0.1 Thou/mm3 (0.0-0.5); Eosinophils % (Auto) 2 % (0-10); Hematocrit 33.0 % (36.0-46.0); Hemoglobin 11.5 g/dL (12.0-16.0); Immature Granulocytes Auto 0.02 Thou/mm3 (0.00-0.00); Lymphocytes # (Auto) 1.9 Thou/mm3 (1.0-4.8); Lymphocytes % (Auto) 30 % (10-50); Mean Corpuscular HGB Conc 34.8 g/dl (31.0-37.0); Mean Corpuscular Hemoglobin 33.0 pg (25.0-35.0); Mean Corpuscular Volume 95 fL (80-100); Monocytes # (Auto) 0.4 Thou/mm3 (0.0-0.8); Monocytes % (Auto) 6 % (0-12); Neutrophils # (Auto) 4.1 Thou/mm3 (1.8-7.7); Neutrophils % (Auto) 63 % (37-80); Nucleated Red Blood Cell # 0.00 Thou/mm3 (0.00-0.00); Nucleated Red Blood Cell % 0 /100 WBC (0); Platelet Count 216 Thou/mm3 (140-440); RDW Standard Deviation 47.4 fL (36.4-46.3); Red Blood Count 3.48 Miln/mm3 (4.00-5.20); White Blood Count 6.5 Thou/mm3 (3.6-11.0)
[2025-04-17 12:35] LABS: Alanine Aminotransferase 52 U/L (10-49); Albumin, Serum 4.3 gm/dL (3.5-5.0); Albumin/Globulin Ratio 1.5 (1.2-2.2); Alkaline Phosphatase 72 U/L (46-116); Anion Gap 9 (7-16); Aspartate Amino Transferase 56 U/L (0-34); BUN/Creatinine Ratio 12 Ratio (12-20); Bilirubin,Total 0.5 mg/dL (0.3-1.2); Blood Urea Nitrogen 11 mg/dL (9-23); Calcium 9.2 mg/dL (8.3-10.6); Calcium (Corrected) 9.2 mg/dL (8.5-10.1); Carbon Dioxide 24.6 mMol/L (20.0-31.0); Chloride 107 mMol/L (98-107); Creatinine (Component) 0.9 mg/dL (0.6-1.3); Estimated Creatinine Clearance 80.9 mL/min (>60); Globulin 2.9 gm/dL (2.3-3.5); Glucose 83 mg/dL (74-106); Lipase 33 U/L (12-53); Osmolality,Calculated 279 (275-295); Potassium 4.2 mMol/L (3.4-5.1); Sodium 141 mMol/L (136-145); Total Protein 7.2 gm/dL (5.7-8.2); eGFR > 60 See Note
[2025-04-17] MEDS: ONDANSETRON ODT 4 MG TABRAP PO (17:13)
[2025-04-17 18:48] VITALS: BP 118/76; PULSE 72; RESP 16; TEMP 36.6; O2SAT 100
[2025-04-17 19:30] VITALS: BP 109/71; PULSE 79; RESP 18; TEMP 36.9; O2SAT 100
[2025-04-17] MEDS: ACETAMINOPHEN 325 MG TABLET 650 MG PO (20:24)
[2025-04-17] MEDS: SODIUM CHLORIDE 0.9% 1000 ML 1,000 ML 125 ML IV (20:25)
--- NOTE | 2025-04-17 20:28 | PC.NURSE ---
[facility]o contacted for ERCP capability. Becky at Transfer center stated they have [facility] which does have ERCP capaqbilities
--- NOTE | 2025-04-17 21:21 | PC.NURSE ---
[facility] Accepts [facility] Caruso for ERCP- ED to ED transfer Report to be called to
--- NOTE | 2025-04-17 21:42 | PC.NURSE ---
report given to tiffany from [facility] ed. tiffany made known of pts status and reason for transfer. pt stable at this time no complaints
[2025-04-17] MEDS: MORPHINE SULF INJ 4 MG/ML VIAL IVP (22:37)
[2025-04-17] MEDS: ONDANSETRON INJ 2 MG/ML INJ 2 ML 4 MG IVP (22:38)
== END 2025-04-17 23:25 | disposition short-term general hospital (02) ==
PROVIDERS: Registered Nurse General Practice; Emergency Provider Emergency Medicine
DX: K80.50 Calculus of bile duct without cholangitis or cholecystitis without obstruction (principal); Z75.1 Person awaiting admission to adequate facility elsewhere
CPT/HCPCS: 36415; 74181; 80053; 83690; 85025; 96374; 96375; 99284; J2270; J2405; J7030; Q0162; A9270